=== PATIENT | male | born 1970 | race Caucasian/White ===

== ENCOUNTER 2022-03-31 15:18 | Emergency (ER) | payer MEDICAID, OTHER ==
[2022-03-31 16:03] VITALS: BP 114/64; PULSE 71
[2022-03-31 16:31] LABS: ANION GAP 9.4 mEq/L (7-13)
[2022-03-31 16:48] LABS: PTT,PARTIAL THROMBOPLSTIN TIME 24.4 SEC (22.0-34.0)
[2022-03-31] MEDS ORDERED: Ondansetron 4 MG/2 ML SDV IVPUSH ONE (16:58)
[2022-03-31] MEDS ORDERED: fentaNYL 100 MCG/2 ML SDV IVPUSH ONE (16:58)
[2022-03-31] MEDS ORDERED: HYDROmorphone 1 MG/ML Syringe IVPUSH ONE ×2 (17:26→18:18)
[2022-03-31] MEDS ORDERED: methylPREDNISolone Sodium Succinate 125 MG/2 ML SDV IVPUSH ONE (18:07)
== END 2022-03-31 18:27 | disposition home or self-care (01) ==
LOC: DL.ED 15:18
DX: M25.531 Pain in right wrist (principal); M06.9 Rheumatoid arthritis, unspecified; Z79.899 Other long term (current) drug therapy; Z79.52 Long term (current) use of systemic steroids
CPT/HCPCS: 36415; 73110; 80053; 84550; 85025; 85379; 85610; 85651; 85730; 86140; 93971; 96374; 96375; 96376; 99284; J1170; J2405; J2930; J3010